=== PATIENT | female | born 1965 | race Two or more races ===

== ENCOUNTER → 2018-07-15 | Emergency (ER) | payer BC ==
[~2018-07-15] VITALS: Ht 167.6 cm; Wt 78.0 kg
[~2018-07-15] MED LIST: LOSARTAN-HCTZ1 EACH; METOPROLOL SUCC50 MG; SIMVASTATIN10 MG
== END | disposition left against medical advice (07) ==
LOC: ER 00:41
DX: Z53.20 Procedure and treatment not carried out because of patient's decision for unspecified reasons (principal)

== ENCOUNTER 2021-08-21 09:27 | Emergency (ER) | payer OTHER ==
[~2021-08-21] VITALS: Ht 167.6 cm; Wt 79.8 kg
[2021-08-21] MEDS ORDERED: KAPSPARGO SPRIN25 MG (09:36)
== END 2021-08-21 14:46 | disposition home or self-care (01) ==
LOC: ER 09:27
DX: N20.1 Calculus of ureter (principal); I10 Essential (primary) hypertension